=== PATIENT | male | born 1990 | race Caucasian/White ===

== ENCOUNTER 2016-10-24 07:08 | Emergency (ER) | payer OTHER ==
[~2016-10-24] VITALS: Ht 185.4 cm; Wt 99.8 kg
[2016-10-24 08:06] LABS: BASOPHIL % 0.2 % (0-2); PLATELET COUNT 261 x10^3mcL (130-400); RED CELL DISTRIBUTION WIDTH 14.5 % (11.5-14.5)
[2016-10-24 08:13] LABS: microscopic required? NO
[2016-10-24 08:49] LABS: ALBUMIN 4.1 g/dL (3.4-5.0); ALKALINE PHOSPHATASE 48 U/L (46-116); ALT/SGPT 23 U/L (16-63); AST/SGOT 15 U/L (15-37); BILIRUBIN TOTAL 0.6 mg/dL (0.20-1.00); CALCIUM 8.8 mg/dL (8.5-10.1); CARBON DIOXIDE 25.2 mmol/L (21-32); CHLORIDE SERUM 102 mmol/L (98-107); CREATININE SERUM 1.2 mg/dL (0.7-1.3); GFR1 > 60 mL/min; GLUCOSE SERUM 114 mg/dL (74-106); POTASSIUM SERUM 3.5 mmol/L (3.5-5.1); SODIUM SERUM 139 mmol/L (136-145); TOTAL PROTEIN, SERUM 7.8 g/dL (6.4-8.2); TRIGLYCERIDES 79 mg/dL (<150)
[2016-10-24 08:50] LABS: CHOLESTEROL 129 mg/dL (<200); CHOLESTEROL/HDL RATIO 2.1; HDL CHOLESTEROL 62 mg/dL (40-60); T3 TOTAL 1.02 ng/mL
[2016-10-24 08:54] LABS: urine erythrocyte NEGATIVE (NEGATIVE)
[2016-10-24 09:01] LABS: AMPHETAMINE QUAL UR POSITIVE (NEG <=1000)
[2016-10-24 09:03] LABS: FREE T4 1.07 ng/dL (0.76-1.46); LIPASE 164 IU/L (73-393); T4(THYROXINE) 7.5 ug/dL (4.7-13.3)
[2016-10-24 11:59] VITALS: BP 133/89
== END 2016-10-24 11:57 | disposition home or self-care (01) ==
LOC: ED 07:08
PROVIDERS: Specialist
DX: F14.10 Cocaine abuse, uncomplicated (principal); F15.10 Other stimulant abuse, uncomplicated
CPT/HCPCS: 83880; 84439; J2060; J3490; J7030; Q0092

== ENCOUNTER 2017-04-14 14:20 | Emergency (ER) | payer SELFPAY ==
[~2017-04-14] VITALS: Ht 185.4 cm; Wt 105.2 kg
[2017-04-14 14:24] VITALS: BP 139/82; Ht 185.4 cm; Wt 105.2 kg
== END 2017-04-14 17:30 | disposition home or self-care (01) ==
LOC: ED 14:20
DX: J98.01 Acute bronchospasm (principal); J02.9 Acute pharyngitis, unspecified; R53.81 Other malaise